=== PATIENT | male | born 1965 | race Caucasian/White ===

== ENCOUNTER 2016-11-28 13:21 | Outpatient (CLI) | payer OTHER ==
[2016-11-28] MEDS ORDERED: GADOPENTETATE DIMEGLUMINE 5 ML VIAL IVP ONE (14:11)
[2016-11-28] MEDS ORDERED: IOTHALAMATE MEGLUMINE 50 ML VIAL IVP ONE (14:11)
[2016-11-28] MEDS ORDERED: BUFFERED LIDOCAINE 10 ML SYRINGE IU ONE (14:11)
[2016-11-28] MEDS ORDERED: LIDOCAINE 1% 50 ML MDV SUBQ ONE (14:11)
== END 2016-11-28 13:22 | disposition home or self-care (01) ==
DX: M22.41 Chondromalacia patellae, right knee (principal)
CPT/HCPCS: 20610; 73722; 77002; Q9961

== ENCOUNTER 2022-10-28 02:19 | Emergency (ER) | payer OTHER ==
[2022-10-28] MEDS ORDERED: ONDANSETRON 4 MG/2 ML VIAL IVP STA (02:46)
[2022-10-28] MEDS ORDERED: KETOROLAC 30 MG/ML VIAL IVP STA (02:46)
[2022-10-28] MEDS ORDERED: SODIUM CHLORIDE 0.9% 1,000 ML IV STA (02:46)
--- NOTE | 2022-10-28 02:46 | ED Physician Documentation ---
PD HPI ABD PAIN - Stated complaint Stated Complaint: ABD PX/V - Chief complaint Chief Complaint: Abd Pain - History obtained from History obtained from: Patient, Family - History of Present Illness Timing - onset: Enter time (2329), Last night Timing - duration: Hours Timing - details: Abrupt onset, Still present Quality: Sharp, Pain Location: Epigastric Improved by: Laying still, Vomiting, Position Worsened by: Position, Palpation Associated symptoms: Nausea, Vomiting Similar symptoms before: Has not had sx before Recently seen: Not recently seen - Additional information Additional information: 56-year-old Pilo Arvizu had roast pork for dinner last night and about 11:30 PM he developed epigastric pain. This pain became severe, he vomited multiple times. He is now vomiting bile and has persistence of pain. He has not had these symptoms previously.The patient denies any recent illness and has otherwise been healthy. Review of Systems Constitutional: denies: Fever Ears: denies: Ear pain Nose: denies: Congestion Throat: denies: Sore throat Cardiac: denies: Chest pain / pressure Respiratory: denies: Dyspnea, Cough GI: reports: Abdominal Pain, Nausea, Vomiting : denies: Dysuria, Frequency Skin: denies: Rash Musculoskeletal: denies: Neck pain, Back pain, Extremity pain PD PAST MEDICAL HISTORY - Past Medical History Past Medical History: Yes Cardiovascular: None Respiratory: None Endocrine/Autoimmune: None GI: None : None HEENT: Chronic vision loss Psych: None Musculoskeletal: None Derm: None - Past Surgical History Past Surgical History: Yes Ortho: Other - Present Medications Home Medications: Ambulatory Orders Medication Instructions Recorded Confirmed Multivitamin [Multiple Vitamins] 1 each PO 06/27/16 [place]-3 Fatty Acids [Fish Oil] 300 mg PO 06/27/16 - Allergies Allergies/Adverse Reactions: Allergies Allergy/AdvReac Type Severity Reaction Status Date / Time No Known Drug Allergies Allergy Verified 06/27/16 14:31 - Social History Does the pt smoke?: No Smoking Status: Never smoker Does the pt drink ETOH?: No Does the pt have substance abuse?: No - Immunizations Immunizations are current?: Yes - POLST Patient has POLST: No PD ED PE NORMAL - Vitals Vital signs reviewed: Yes (Normal) - General General: Alert and oriented X 3, Well developed/nourished, Other (Appears to be in pain with house mother tone and flattened affect) - HEENT HEENT: Atraumatic, PERRL, EOMI - Neck Neck: Supple, no meningeal sign, No bony TTP - Cardiac Cardiac: RRR, No murmur - Respiratory Respiratory: No respiratory distress, Clear bilaterally - Abdomen Abdomen: Normal bowel sounds, Soft, Non distended, No organomegaly, Other (Epigastric taint pain to palpation as well as right upper quadrant pain to palpation epigastric pain is more than right upper quadrant pain. 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, No motor deficit, No sensory deficit, Normal speech Eye Opening: Spontaneous Motor: Obeys Commands Verbal: Oriented GCS Score: 15 - Psych Psych: Normal mood Results - Vitals Vitals: Vital Signs - 24 hr 10/28/22 10/28/22 02:28 02:30 Temperature 36.4 C L Heart Rate 69 65 Respiratory 16 16 Rate Blood Pressure 120/71 125/76 O2 Saturation 99 98 Oxygen O2 Source Room air - Labs Labs: Laboratory Tests 10/28/22 10/28/22 02:56 02:56 WBC 13.8 H RBC 5.09 Hgb 16.4 Hct 48.0 MCV 94.3 H MCH 32.2 H MCHC 34.2 RDW 11.9 L Plt Count 200 MPV 9.7 Neut # (Auto) 12.0 H Lymph # (Auto) 1.0 L Ellis # (Auto) 0.7 Eos # (Auto) 0.0 Baso # (Auto) 0.0 Absolute Nucleated RBC 0.00 Nucleated RBC % 0.0 Sodium 139 Potassium 3.4 L Chloride 101 Carbon Dioxide 29 Anion Gap 9.0 BUN 30 H Creatinine 1.1 Estimated GFR (MDRD) 69 L Glucose 149 H Calcium 9.1 Total Bilirubin 0.7 AST 41 ALT 52 Alkaline Phosphatase 70 Total Protein 7.5 Albumin 4.6 Globulin 2.9 Albumin/Globulin Ratio 1.6 Lipase 42 Procedures - Bedside sono Bedside sono by EMP: With use of POCUS the gallbladder is imaged there is no pericholecystic fluid or thickening of the gallbladder wall there does appear to be sludge in the g allbladder. The gallbladder is not specifically more tender sonographically than other areas of the epigastrium. PD Medical Decision Making - ED course Complexity details: reviewed old records, reviewed results, re-evaluated patient, considered differential, d/w patient, d/w family Reviewed Lab Results: We reviewed a complete blood count which showed a white blood cell count elevated at 13.8 and normal hemoglobin and hematocrit normal platelets reviewed chemistries showing a serum sodium mildly low at 3.4 BUN elevated at 30 glucose elevated at 149 the remainder of the liver functions are entirely normal. Lipase is normal. My interpretation of this minimally low potassium is likely GI fluid loss the mild elevation in BUN consistent with dehydration or ingestion of blood. There being a hematocrit of 48 and hemoglobin of 16.4, this seems unlikely to be related to any significant blood loss. ED course: This patient presented to the emergency department with acute epigastric pain and vomiting I could not make a case for food poisoning as the patient's had eaten the same meal and was entirely well. After examining patient I was concerned about the possibility of gallbladder disease I did use POCUS and found some gallbladder sludge without evidence of cholecystitis. We treated the patient here in the emergency department with Zofran and Toradol with marked improvement in his pain and symptoms. His course was consistent with the possibility of gallbladder attack and I have asked the patient to follow-up with his primary for referral for outpatient ultrasound. We do not have ultrasound available at 3:00 in the morning. Departure - Departure Disposition: 01 Home, Self Care Clinical Impression: Abdominal pain Qualifiers: Abdominal location: epigastric Qualified Code(s): R10.13 - Epigastric pain Condition: Stable Instructions: ED Abdominal Pain Gallstone Poss, ED Diet Low Fat Follow-Up: LUIS JAVIER MD [Physician No Access] - Sagar Juarez MD [Provider Admit Priv/Credential] - Comments: Pilo, today it looks like your abdominal pain may be related to gallbladder sludge and I have made a recommendation for you to follow-up with your primary care doctor for referral for an outpatient ultrasound of your gallbladder.I have included some instructions about a low-fat diet. Typically gallbladder attacks last 4 to 5 hours usually occur several hours after eating and are usually severe enough that people will end up in the emergency department. Despite our preliminary findings here this evening this may not be your gallbladder. A follow up formal ultrasound is indicated and if positive a visit to the surgeon is recommended.
[2022-10-28 03:03] LABS: BASOPHILS % (AUTO) 0.2 %; EOSINOPHILS % (AUTO) 0.3 %; HGB - HEMOGLOBIN 16.4 g/dL (14.0-18.0); LYMPHOCYTES % (AUTO) 7.3 %; MEAN CORPUSCULAR HEMOGLOBIN 32.2 pg (27.0-31.0); MEAN CORPUSCULAR HGB CONC 34.2 g/dL (32.0-36.0); MEAN CORPUSCULAR VOLUME 94.3 fL (80.0-94.0); MEAN PLATELET VOLUME 9.7 fL (7.4-11.4); MONOCYTES # (AUTO) 0.7 10^3/uL (0.0-1.0); MONOCYTES % (AUTO) 4.8 %; NEUTROPHILS % (AUTO) 87.1 %; PLT - PLATELET COUNT 200 10^3/uL (130-450); RED BLOOD COUNT 5.09 10^6/uL (4.70-6.10); RED CELL DISTRIBUTION WIDTH 11.9 % (12.0-15.0); WHITE BLOOD COUNT 13.8 x10^3/uL (4.8-10.8)
[2022-10-28 03:15] LABS: ALBUMIN 4.6 g/dL (3.2-5.5); ALBUMIN/GLOBULIN RATIO 1.6 (1.0-2.2); BILIRUBIN,TOTAL 0.7 mg/dL (0.2-1.0); CALCIUM 9.1 mg/dL (8.5-10.3); CREATININE 1.1 mg/dL (0.6-1.2); POTASSIUM 3.4 mmol/L (3.5-5.0); TOTAL PROTEIN 7.5 g/dL (6.7-8.2)
[2022-10-28] MEDS ORDERED: ONDANSETRON ODT 4 MG Prepack 2 TL PRN (03:52)
[2022-10-28 04:00] VITALS: BP 132/74
== END 2022-10-28 04:00 | disposition home or self-care (01) ==
LOC: ED 02:19
DX: R10.13 Epigastric pain (principal)
CPT/HCPCS: 36415; 80053; 83690; 85025; 96374; 99284